=== PATIENT | female | born 1975 | race Caucasian/White ===

== ENCOUNTER 2021-08-15 05:55 | Day surgery (SDC) | payer OTHER ==
[~2021-08-15 05:55] MED LIST: SYNTHROID112 MCG; SYNTHROID125 MCG
== END 2021-08-15 12:40 | disposition home or self-care (01) ==
LOC: CIR.AMB 05:55
PROVIDERS: ATTEND Obstetrics & Gynecology Maternal & Fetal Medicine
DX: N84.0 Polyp of corpus uteri (principal); Z20.822 Contact with and (suspected) exposure to COVID-19